=== PATIENT | female | born 1975 | race Caucasian/White ===

== ENCOUNTER 2023-07-24 17:18 | Outpatient (REF) | payer MEDICAID, SELFPAY ==
[2023-07-25 10:21] LABS: BV Int Neg Control Negative (Negative); BV Int Pos Control Positive (Positive)
[2023-07-30 06:29] LABS: HPV mRNA E6/E7 rflx Not Detected (Not Detected)
== END 2023-07-24 17:19 | disposition home or self-care (01) ==
LOC: HO.HHCLNP 17:18
PROVIDERS: Visit Provider Family Medicine
DX: Z01.419 Encounter for gynecological examination (general) (routine) without abnormal findings (principal); Z11.51 Encounter for screening for human papillomavirus (HPV)
CPT/HCPCS: 87480; 87510; 87624; 87660; 88142

== ENCOUNTER 2023-09-17 10:03 | Outpatient (REF) | payer MEDICAID, SELFPAY ==
--- NOTE | ~2023-09-17 | MM_ITS ---
EXAMINATION: MM SCREENING DIGITAL BREAST TOMOSYNTHESIS, BILATERAL CLINICAL INFORMATION: Screening. Asymptomatic. COMPARISON: Mammography: This is a baseline study. TECHNIQUE: Digital breast tomosynthesis is performed in both the craniocaudal and mediolateral oblique views along with computer-aided detection (CAD). Synthesized 2D images are generated from the tomosynthesis. FINDINGS: There are scattered areas of fibroglandular density (ACR BI-RADS breast composition Category b). There are 2 asymmetries in the superior aspect of the right breast which lie approximately 18 mm apart. Additional mammographic and targeted imaging of this finding is advised. Sonographic imaging is at the discretion of the diagnostic radiologist. In the left breast, there are no significant masses, abnormal calcifications, or other abnormalities. MM/MM tomosynthesis screening BI IMPRESSION: Asymmetries of the right breast warrant additional imaging. No mammographic signs of malignancy left breast. ASSESSMENT: BI-RADS BI-RADS 0 - Incomplete: Needs additional Imaging. RECOMMENDATION: 1. Additional views of the right. 2. Targeted ultrasound if warranted after review of the additional views. 3. Radiology department staff will contact the patient for additional imaging. Additional Imaging required This examination should not preclude the clinical evaluation of a suspicious palpable abnormality. This patient's information was entered into a reminder system with a target due date for their next mammogram.
== END 2023-09-17 10:04 | disposition home or self-care (01) ==
LOC: HO.MAMMO 10:03
PROVIDERS: PCP Family Medicine; Visit Provider Family Medicine
DX: Z12.31 Encounter for screening mammogram for malignant neoplasm of breast (principal)
CPT/HCPCS: 77063; 77067

== ENCOUNTER → 2023-09-17 10:15 | Outpatient (BNV) | payer MEDICAID, SELFPAY | PROVIDERS: PCP Family Medicine; Visit Provider Radiology Diagnostic Radiology | DX: Z12.31 Encounter for screening mammogram for malignant neoplasm of breast (principal) | CPT/HCPCS: 77063; 77067 ==

== ENCOUNTER 2023-11-26 10:56 | Outpatient (REF) | payer MEDICAID, SELFPAY ==
--- NOTE | ~2023-11-26 | US_ITS ---
EXAMINATION: MM DIAGNOSTIC DIGITAL BREAST TOMOSYNTHESIS, RIGHT US BREAST LIMITED, RIGHT MAMMOGRAPHY: CLINICAL INFORMATION: Evaluate 2 asymmetries in the right breast superior aspect which lie approximately 18 mm apart. COMPARISON: Mammography: Baseline screening exam 09/17/2023. TECHNIQUE: Digital breast tomosynthesis is performed in the following views: Full-field 3-D right mediolateral view, and a 3-D spot compression right MLO view. This was followed by targeted right breast ultrasound in the upper outer quadrant. FINDINGS: There are scattered areas of fibroglandular density (ACR BI-RADS breast composition Category b). The asymmetries in the upper outer right breast partially efface on the spot compression view, but small nodular foci in this region persist. These will be evaluated by ultrasound. Otherwise, no additional suspicious masses, regions of architectural distortion, or grouped pleomorphic calcifications are identified in the right breast. ULTRASOUND: CLINICAL INFORMATION: Evaluate persistent nodular asymmetries in the upper outer right breast. COMPARISON: No prior ultrasound. Mammography dated same day. TECHNIQUE: Targeted sonographic evaluation was performed using a high frequency linear transducer. Attention was given to the upper outer quadrant of the right breast. Selected archived documentation. FINDINGS: RIGHT BREAST: There is a solitary and minimally complicated cyst on the upper outer quadrant of the right breast at the 10:00 axis, 7 cm from the nipple, measuring 7 x 3 x 4 mm. There is some mild surrounding color Doppler signal but no internal color Doppler signal. There is good through transmission. There is a solitary septation internally, however the rest appears cystic. Margins are circumscribed. This finding has benign features and is benign. There are no additional abnormalities in the upper outer quadrant of the right breast on sonography. US/US breast RT limited mamm only IMPRESSION: No findings in the right breast suspicious for malignancy. 2 abutting upper outer quadrant asymmetries largely effaces on diagnostic views, with only a few nodular foci remaining, of which one is a minimally complicated septated cyst measuring 7 mm as described above, benign. The rest appear to be normal nodular foci of normal breast parenchyma. No further follow-up recommended. Recommend the patient return to routine screening to include both breasts. OVERALL ASSESSMENT: Mammography: BI-RADS 2 - Benign Findings Ultrasound: BI-RADS 2 - Benign Findings RECOMMENDATION: 1 year F/U Results were provided to the patient at time of visit by the technologist. This patient's information was entered into a reminder system with a target due date for their next mammogram.
== END 2023-11-26 10:57 | disposition home or self-care (01) ==
LOC: HO.MAMMO 10:56
PROVIDERS: PCP Family Medicine; Visit Provider Family Medicine
DX: N64.89 Other specified disorders of breast (principal)
CPT/HCPCS: 76642; 77061; 77065

== ENCOUNTER → 2023-11-26 11:00 | Outpatient (BNV) | payer MEDICAID, SELFPAY | PROVIDERS: PCP Family Medicine; Visit Provider Radiology Diagnostic Radiology | DX: N60.01 Solitary cyst of right breast (principal) | CPT/HCPCS: 76642; 77061; 77065 ==

== ENCOUNTER 2024-05-06 14:17 | Outpatient (REF) | payer MEDICAID, SELFPAY ==
--- NOTE | ~2024-05-06 | XR_ITS ---
EXAMINATION: XR KNEE, LEFT CLINICAL INFORMATION: Pain and fall. Left knee pain. COMPARISON: None available. TECHNIQUE: AP, lateral, and both oblique views of the left knee. FINDINGS: Mild medial and patellofemoral compartment joint space narrowing and marginal osteophytes. No fractures. Small joint effusion. Enthesopathic spurring in the quadriceps tendon insertion on the patella. Soft tissues are unremarkable. XR/XR knee LT 4V IMPRESSION: 1. No acute fracture or malalignment. 2. Mild medial and patellofemoral compartment osteoarthritis. 3. Small joint effusion. Electronically signed by: John Ngo MD 05/26/2024 10:44 PM EDT
== END 2024-05-06 14:18 | disposition home or self-care (01) ==
LOC: HO.HHCX 14:17
PROVIDERS: Visit Provider Student in an Organized Health Care Education/Training Program
DX: M25.562 Pain in left knee (principal)
CPT/HCPCS: 73564

== ENCOUNTER 2025-08-17 14:56 | Outpatient (REF) | payer MEDICAID, SELFPAY ==
--- OUTSIDE RECORDS SUMMARY | 2025-08-17 15:30 | XMS_ITS | Encounter Summary ---
Author Organization [employer] Address [address] [place] [address] Care Team Providers Care Pairer Inspector Name Role Phone Bernadette Carolina MD Primary Care Provider [phone] Reason for Visit * Reason Comments RN BP VISIT Encounter Details Date Type Department Care Team (Latest Contact Info) Description 08/17/2025 3:30 PM EST Clinical Support [facility] [address] [place] [address] Nuria Merida RN Elevated blood pressure reading Social History Tobacco Use Types Packs/Day Years Used Date Smoking Tobacco: Never Passive Smoke Exposure: Never Smokeless Tobacco: Never Depression Answer Date Recorded Patient Health Questionnaire-9 Score 16 2025 Patient Health Questionnaire-9 Score 16 2025 Last PHQ-9: Questionnaire Data Not on file 1 09/25/2024 Housing Stability Answer Date Recorded What is your housing situation today? I have enriqueta guevara 07/19/[address] you li ve. Do you have problems with any of the following? None of the above 07/19/2025 Food Insecurity Answer Date Recorded Within the past 12 months, y ou worried that your food would run out before you got money to buy more: Never True 07/19/2025 Within the past 12 months,th e food you bought just didn't last and you didn't have enough money to get more: Never True 06/2025 Transportation Answer Date Recorded In the past 12 months, has l ack of transportation kept you from medical appts, meetings, work or from getting things needed for daily living? No 07/19/2025 Utilities Answer Date Recorded In the past 12 months, has t he electric, gas, oil or water company threatened to shut off services in your home? No 07/19/2025 Depression Answer Date Recorded Patient Health Questionnaire-2 Score 3 2025 Internet Access Answer Date Recorded Internet Access Q1 Yes 07/19/2025 Internet Access Q2 Not on file 07/19/2025 Comments Unknown Sex and Gender Information Value Date Recorded Sex Assigned at Female 10/12/2022 10:30 AM EST Legal Sex Female 10:19 AM EST Gender Identity Female 10/12/2022 10:29 AM EST Sexual Orientation Straight 10/12/2022 10 :30 AM EST documented as of this encounter Last Filed Vital Signs Vital Sign Reading Time Taken Comments Blood Pressure 130/88 08/17/2025 3:41 PM EST Pulse 92 08/17/2025 3:41 PM EST Temperature - - Respiratory Rate 20 08/17/2025 3:41 PM EST Oxygen Saturation 97% 08/17/2025 3:41 PM EST Inhaled Oxygen Concentration - - Weight - - Height - - Body Mass Index - - documented in this encounter Progress Notes * Nuria Merida RN - 08/17/2025 3:30 PM EST SUBJECTIVE: Roberta Maurice is a 50 y.o. year old female who presents for RN BP VISIT Preferred language for medical information: Czech [employer] Bpm Developer needed: No Recommendations at last visit with PCP on 07/26 was to come for a return BP check in 2-3 weeks. If SBP > 140 in the office or >130 at home will start on olmesatan 20 mg daily or losartan 20 mg daily. Today, Roberta Maurice does not complain of any blurred vision, shortness of breath, chest pain, dizziness, or headaches. Current Medications[1] Patient Active Problem List Diagnosis Date Noted Chronic pain of left knee 09/23/2024 Obesity 04/28/2024 Colon cancer screening declined 08/02/2023 Fibroids 08/02/2023 Chronic pain of both knees 04/19/2023 Abnormal uterine bleeding (AUB) 12/14/2022 Depression 10/12/2022 Insomnia 10/12/2022 Panic disorder 10/12/2022 HTN (hypertension) 10/12/2022 Type 2 diabetes mellitus (HCC) 10/12/2022 Chronic deafness in right ear 10/12/2022 Secondary oligomenorrhea 12/13/2022 Patient has no known allergies. Roberta Maurice is currently on NO antihypertensive medications. Recent emergency room or hospitalizations: No Notes scanned into chart: No Tobacco Use History[2] Social History Substance and Sexual Activity Alcohol Use None Social History Substance and Sexual Activity Drug Use Not on file BP Readings from Last 4 Encounters: 08/17/25 130/88 07/26/25 (!) 164/106 09/23/24 (!) 137/108 05/06/24 (!) 167/106 Pulse Readings from Last 4 Encounters: 08/17/25 92 07/26/25 76 09/23/24 96 05/06/24 99 OBJECTIVE: Vitals: 08/17/25 1541 BP: 130/88 BP Location: Left arm Patient Position: Sitting BP Cuff Size: Large adult Pulse: 92 Resp: 20 SpO2: 97% ASSESSMENT: Achieve goal blood pressure of <140/90. The pt did not have any home BP readings to report. The pt does have a home BP cuff but simply did not take any readings. The pt was advised of plan of careand possibly starting on hypertensive medication but the pt adamantly refused. The pt was advised that since today's BP was below the threshold for medications none will be added but this visit will be sent to PCP for review. PLAN: Today's findings will be sent to PCP for review and advisement. If any medication changes are made or a follow up needed the pt will be contacted. Roberta Maurice advised to continue taking medications as directed and reinforcement of lifestylemodifications including low sodium diet and exercise were reviewed. Roberta Maurice agreeable to plan discussed at today's visit. No future appointments. Nuria Merida RN [1] Current Outpatient Medications Medication Sig Dispense Refill clotrimazole-betamethasone (Lotrisone) cream APPLY TOPICALLY TO THE AFFECTED AREA ONCE OR TWICE DAILY 45 g 1 FLUoxetine (PROzac) 40 MG capsule Take 1 capsule by mouth once daily 90 capsule 3 Tirzepatide (Mounjaro) 2.5 MG/0.5ML solution auto-injector Inject 2.5 mg under the skin 1 (one) time per week. 2 mL 11 No current facility-administered medications for this visit. [2] Social History Tobacco Use Smoking Status Never Passive exposure: Never Smokeless Tobacco Never documented in this encounter Plan of Treatment Not on file documented as of this encounter Goals Goal Patient Goal Type Associated Problems Recent Progress Patient-Stated? Author Help patients manage their type 2 diabetes Care Plan Help patients manage their type 2 diabetes Bernadette Villagomez MD Patient has chronic kidney disease Care Plan Patient has chronic kidney disease Bernadette Villagomez MD Patient has chronic kidney disease Care Plan Patient has chronic kidney disease Juani Morgan [place] Patient has chronic kidney disease Care Plan Patient has chronic kidney disease Sally Hooper Patient has chronic kidney disease Care Plan Patient has chronic kidney disease Deepa Rios [facility] Patient has chronic kidney disease Care Plan Patient has chronic kidney disease Nuria Faustin RN documented as of this encounter Visit Diagnoses Diagnosis Elevated blood pressure reading Elevated blood pressure reading without diagnosis of hypertension documented in this encounter Additional Health Concerns Active Problems Noted Date Diagnosed Date Help patients manage their type 2 diabetes 07/22 Patient has chronic kidney disease 07/22/2025 Patient has chronic kidney disease 07/23/2025 Patient has chronic kidney disease 08/04/2025 Patient has chronic kidney disease 08/16/2025 Patient has chronic kidney disease 08/17/2025 Assessment Noted Time PHQ-9 Depression Total Score: 16 025 3:19 PM EST documented as of this encounter Care Teams Pairer Inspector Relationship Specialty Start Date End Date Bernadette Carolina MD [address] [place] [address] PCP - General Family Medicine 12/17/22 documented as of this encounter
[2025-08-17 16:19] LABS: MANUAL DIFF FLAG NO
[2025-08-17 16:31] LABS: INTERNATIONAL NORM RATIO 1.1 (0.9-1.1); Prothrombin Time 13.0 SEC (11.2-13.5)
[2025-08-17 16:32] LABS: Hematocrit 41.4 % (37.0-47.0); Hemoglobin 14.2 g/dl (12.0-16.0); Imm Gran Abs Auto 0.04 X10*3/uL (0.00-0.03); Imm Gran Pct Auto 0.4 % (0.0-0.4); Lymphocytes Absolute Auto 1.6 X10*3/uL (1.2-4.9); Mean Corpuscular HGB Conc 34.3 g/dl (31.0-35.0); Mean Corpuscular Hemoglobin 31.1 pg (27.0-33.0); Mean Corpuscular Volume 90.8 fL (80.0-98.0); NRBC Abs Auto 0.000 X10*3/uL (0.0-0.012); NRBC Pct Auto 0.0 /100WBC (0.0-0.2); Platelet Count 212 X10*3/uL (160-400); Red Blood Count 4.56 X10*6/uL (4.20-5.50); White Blood Count 9.6 X10*3/uL (4.8-10.8)
[2025-08-17 16:34] LABS: Partial Thromboplastin Time 28.6 SEC (26.7-34.1)
[2025-08-17 16:57] LABS: Alanine Aminotransferase 12 U/L (0-31); Albumin Level 4.3 g/dL (3.5-5.0); Alkaline Phosphatase 62 U/L (39-117); Anion Gap 13 (12-20); Aspartate Amino Transferase 28 U/L (5-31); Blood Urea Nitrogen 18 mg/dL (9-16); Calcium 9.1 mg/dL (8.4-10.2); Carbon Dioxide 24 mmol/L (22-29); Chloride 106 mmol/L (96-108); Cholesterol 181 mg/dL (<200); Estimated Glomerular Filt Rate > 60; HDL Cholesterol 43 mg/dL (>40); Potassium 4.1 mmol/L (3.3-5.1); Sodium 139 mmol/L (135-145); Total Protein 7.8 g/dL (6.5-8.0); Triglycerides 99 mg/dL (<150)
[2025-08-17 17:46] LABS: Reflex LDLD? No
--- OUTSIDE RECORDS SUMMARY | 2025-08-17 21:15 | XMS_ITS | Clinical Summary ---
Author Organization [employer] Address [address] [place] [address] Care Team Providers Care Kiln Stoker Name Role Phone Bernadette Carolina MD Primary Care Provider [phone] Allergies No known active allergies Medications * This document contains information received from the source organization and may not represent a complete record from that organization. clotrimazole-be tamethasone (Lotrisone) cream APPLY TOPICALLY TO THE AFFECTED AREA ONCE OR TWICE DAILY 45 g 1 03/09/20 24 Active Tirzepatide (Mounjaro) 2.5 MG/0.5ML solution auto-injector Inject 2.5 mg under the skin 1 (one) time per week. 2 mL 07/26/20 25 Active FLUoxetine (PROzac) 40 MG capsule Take 1 capsule by mouth once daily 90 capsule 3 07/26/20 25 Active hydrOXYzine pamoate (Vistaril) 50 MG capsuleIndicati ons:Anxiety,Ins omnia, unspecified type TAKE 1 CAPSULE BY MOUTH EVERY 6 HOURS IF NEEDED FOR ANXIETY 60 capsule 2 03/09/20 24 025 Discontinued(Me d list cleanup (will not trigger notification to Pharmacy)) FLUoxetine (PROzac) 40 MG capsule Take 1 capsule by mouth once daily 90 capsule 3 03/09/20 24 025 Discontinued(Re order (will not trigger notification to Pharmacy)) semaglutide (Ozempic) 2 MG/1.5ML solution pen-injector Inject 0.25 mg under the skin 1 (one) time per week. 1 each 09/23/19 25 025 Discontinued(Me d list cleanup (will not trigger notification to Pharmacy)) Active Problems Problem Noted Date Diagnosed Date Chronic pain of left knee 09/23/2024 Assessment & Plan (07/31/2025 6:35 PM EST): - since the fall in April 2024 - contusion - X-ray showed no fracture, but osteoarthritis and small effusion - discussed about judicious use of NSAIDs - discussed about ortho referral for steroid injection and PT. Patient states she does not have time currently. Assessment & Plan (09/23/2024 10:09 AM EST): - since the fall in April 2024 - contusion - X-ray showed no fracture, but osteoarthritis and small effusion - discussed about judicious use of NSAIDs - discussed about ortho referral for steroid injection and PT. Patient states she does not have time currently. Obesity 04/28/2024 Assessment & Plan (07/31/2025 6:30 PM EST): - patient states semaglutide was not effective - will try tirzepatide Assessment & Plan (09/23/2024 9:59 AM EST): - patient is still interested in GLP1-RA - patient states Wegovy was not effective - will try Semaglutide, and titrate up Assessment & Plan (04/28/2024 10:15 AM EDT): - patient is interested in GLP1-RA - will prescribe appropriate GLP1 Colon cancer screening declined 08/02/2023 Assessment & Plan (08/02/2023 4:47 PM EST): - discussed on 07/24/23 - will address in near future Fibroids 08/02/2023 Assessment & Plan (08/02/2023 4:53 PM EST): - seen on US in December 2022 - no excessive bleeding - monitor at this time Chronic pain of both knees 04/19/2023 Assessment & Plan (07/31/2025 6:35 PM EST): - continue judicious use of APAP - s/p physical therapy - X-ray in Apr 2024 showed medial and patellofemoral compartment osteoarthritis and small joint effusion. Assessment & Plan (09/23/2024 10:07 AM EST): - continue judicious use of APAP - s/p physical therapy - X-ray in Apr 2024 showed medial and patellofemoral compartment osteoarthritis and small joint effusion. Assessment & Plan (04/19/2023 1:29 PM EDT): - continue judicious use of APAP - refer to physical therapy Abnormal uterine bleeding (AUB) 12/14/2022 Assessment & Plan (08/02/2023 4:52 PM EST): - Pap done today - Oligomenorrhea, likely menopausal - US on 12/20/22 showed fibroid, 5 cm - No discomfort at this time - Will reassess in 1-2 years or if she develops concerning signs and symptoms Assessment & Plan (04/19/2023 1:28 PM EDT): - US was benign - reschedule PAP Assessment & Plan (12/14/2022 3:57 PM EDT): -pt states menstruation is less frequent, but when it starts it is very heavy -will schedule for PAP -will evaluate with US Secondary oligomenorrhea 12/13/2022 Overview (12/14/2022): -currently perimenopausal Assessment & Plan (04/19/2023 1:28 PM EDT): -most likely due to perimenopause - reschedule PAP Assessment & Plan (12/14/2022 3:57 PM EDT): -Patient is concerned about d/t unprotected intercourse -most likely due to perimenopause -will check serum test (hcg) Depression 10/12/2022 Assessment & Plan (07/31/2025 6:34 PM EST): - PHQ-9 score 16 and KOKO-7 score 13 on 2025 - PHQ-9 Score: 17 and KOKO-7 score 12 on 04/28/24 -Continue fluoxetine 40 mg daily - Previously on mirtazapine 15 mg at bedtime, which was discontinued due to weight gain - Previously on trazodone, which was discontinued due to drowsiness - Previously on hydroxyzine prn for anxiety - No longer connected with [facility]; will refer to new [facility] Assessment & Plan (09/23/2024 10:00 AM EST): -PHQ-9 Score: 17 on 04/28/24, improved -KOKO-7 score: 12 on 04/28/24, improved -Continue fluoxetine 40 mg daily -Discontinue mirtazapine 15 mg at bedtime, especially since she is gaining weight -Discussed about having correct Dx and appropriate medications -Continue hydroxyzine prn -continue current behavioral health service -treatment Hx: trazodone makes her drowsy until next morning Assessment & Plan (05/03/2024 3:19 PM EDT): -PHQ-9 Score: 17 on 04/28/24, improved -KOKO-7 score: 12 on 04/28/24, improved -Continue fluoxetine 40 mg daily -Continue mirtazapine 15 mg qhs -Continue hydroxyzine prn -continue current behavioral health service -treatment Hx: trazodone makes her drowsy until next morning Assessment & Plan (08/02/2023 4:54 PM EST): -Continue fluoxetine to 20 mg daily -Continue hydroxyzine prn -continue current [facility] tx Assessment & Plan (04/19/2023 1:35 PM EDT): -Increase fluoxetine to 20 mg daily -Continue hydroxyzine prn -continue current [facility] tx Assessment & Plan (12/14/2022 4:00 PM EDT): -Possible adjustment disorder -Start Fluoxetine 10 mg daily and consider titrating up -Continue hydroxyzine prn -continue current [facility] tx Insomnia 10/12/2022 Assessment & Plan (09/23/2024 10:06 AM EST): -mirtazapine is no longer effective. Will discontinue since patient also has gained weight -previously tried trazodone, up to 100 mg, which was switched to mirtazapine due to ineffectiveness -discussed about optimizing treatment for mood disorder, and possibly ADHD, rather than treating insomnia with a medication. Patient agreed with the plan -discussed about sleep study, but patient states she does not think she can do it because of insomnia Assessment & Plan (04/19/2023 1:25 PM EDT): -Increase trazodone to 100 mg qhs -continue improving sleep hygiene Assessment & Plan (12/13/2022 1:49 PM EDT): -Rx Trazodone 2-weeks after taking Fluoxetine -continue improving sleep hygiene Panic disorder 10/12/2022 Assessment & Plan (07/31/2025 6:31 PM EST): - Previously on hydroxyzine Assessment & Plan (04/28/2024 10:17 AM EDT): -Continue Hydroxyzine as needed -continue [facility] Assessment & Plan (04/19/2023 1:32 PM EDT): -Continue Hydroxyzine as needed -continue [facility] Assessment & Plan (12/13/2022 1:49 PM EDT): -Continue Hydroxyzine as needed -continue [facility] HTN (hypertension) 10/12/2022 Assessment & Plan (07/31/2025 6:27 PM EST): -Goal BP < 130/80 per ACC/AHA guideline (Treatment threshold >= 140/90 ) -BP is elevated today, but pt states it is normal at home. Likely white-coat HTN -Continue current effort on lifestyle modifications -Recommended continue self-monitoring BP. -Pt is not taking any medication currently, and has been hesitant to start antihypertensive -advised to get her lab done - Return for BP check with our nurse in 2 to 3 weeks. If SBP > 140 in the office and/or > 130 at home, start olmesartan 20 mg daily or losartan 25 mg daily. Assessment & Plan (09/23/2024 10:05 AM EST): -Goal BP < 140/90 per JNC-8 and < 130/80 per ACC/AHA guideline (Treatment threshold >= 140/90 ) -BP is elevated today, but pt states it is normal at home. Likely white-coat HTN -Continue current effort on lifestyle modifications -Recommended continue self-monitoring BP. -Pt is not taking any medication currently -advised to get her lab done Assessment & Plan (04/28/2024 10:14 AM EDT): -Goal BP < 140/90 per JNC-8 and < 130/80 per ACC/AHA guideline (Treatment threshold >= 140/90 ) -BP is elevated today, but pt states it is normal at home. Likely white-coat HTN -Continue current effort on lifestyle modifications -Recommended continue self-monitoring BP. -Pt is not taking any medication currently Assessment & Plan (08/02/2023 4:48 PM EST): -Goal BP < 140/90 per JNC-8 and < 130/80 per ACC/AHA guideline (Treatment threshold >= 140/90 ) -BP is elevated today, but pt states it is normal at home. Likely white-coat HTN -Continue current effort on lifestyle modifications -Recommended continue self-monitoring BP. -Pt is not taking any medication currently -Follow up in 3-6 mo, sooner if any problem arises Assessment & Plan (04/19/2023 1:26 PM EDT): -Goal BP < 140/90 per JNC-8 and < 130/80 per ACC/AHA guideline (Treatment threshold >= 140/90 ) -BP is elevated today, but pt states it is normal at home. Likely white-coat HTN -Continue current effort on lifestyle modifications -Recommended continue self-monitoring BP. -Pt is not taking any medication currently -Follow up in 3-6 mo, sooner if any problem arises Assessment & Plan (12/14/2022 3:54 PM EDT): -Goal BP < 140/90 per JNC-8 and < 130/80 per ACC/AHA guideline (Treatment threshold >= 140/90 ) -BP is elevated today, but pt states it is normal at home. Likely white-coat HTN -Continue current effort on lifestyle modifications -Recommended continue self-monitoring BP. -Continue current medications. -Follow up in 3-6 mo, sooner if any problem arises Type 2 diabetes mellitus 10/12/2022 Assessment & Plan (07/31/2025 6:29 PM EST): -Patient states she was diagnosed when she weighed 400lbs -Hgb A1C 6.7% on 2025, increased from 6.4% on 09/23/24, 5.7% on 04/16/23. Trending upwards -Lipid profile: 12/13/22 TC 235; TG 117; HDL 78; LDL 135. Updating lab. -Continue working on lifestyle modification -No medication at this time. Her diabetes has been managed non- pharmacologically. -recommended annual eye and dental exams -microalbumin test was ordered in Apr 2024. UACR. -will start tirzepatide for both diabetes mellitus and weight loss Assessment & Plan (09/23/2024 9:58 AM EST): -Patient states she was diagnosed when she weighed 400lbs -Hgb A1C 6.4% on 09/23/24, increased from 5.7% on 04/16/23 -Lipid profile: 12/13/22 TC 235; TG 117; HDL 78; LDL 135 -Continue working on lifestyle modification -No medication at this time. Her diabetes has been managed non- pharmacologically. -recommended annual eye and dental exams -microalbumin test was ordered in Apr 2024. UACR. -will start GLP-1 RA for both diabetes mellitus and weight loss Assessment & Plan (05/03/2024 3:17 PM EDT): -Patient states she was diagnosed when she weighed 400lbs -Hgb A1C 5.7% on 04/16/23 -Lipid profile: 12/13/22 TC 235; TG 117; HDL 78; LDL 135 -Continue working on lifestyle modification -No medication at this time. Her diabetes has been managed non- pharmacologically. -recommended annual eye and dental exams -will check UACR. -will start GLP-1 RA (we can request for diabetes mellitus or Wt loss) Assessment & Plan (04/19/2023 1:32 PM EDT): -Patient states she was diagnosed when she weighed 400lbs -Hgb A1C 5.7% on 04/16/23 -Lipid profile: 12/13/22 TC 235; TG 117; HDL 78; LDL 135 -Continue working on lifestyle modification -No medication at this time -recommended annual eye and dental exams Assessment & Plan (12/14/2022 3:58 PM EDT): -Patient states she was diagnosed when she weighed 400lbs, now, according to her last A1c, it is normal. -Continue periodical labs -No medication at this time -recommended annual eye and dental exams -will check Lipid Profile Chronic deafness in right ear 10/12/2022 Resolved Problems Problem Noted Date Diagnosed Date Resolved Date Encounter for well woman mira king with routine gynecological exam 04/16/2023 04/19/2023 Elevated blood-pressure read ing without diagnosis of hypertension 12/13/2022 07/24/2023 Assessment & Plan (04/19/2023 1:27 PM EDT): -Goal BP < 140/90 per JNC-8 and < 130/80 per ACC/AHA guideline (Treatment threshold >= 140/90 ) -BP is elevated today, but pt states it is normal at home. Likely white-coat HTN -Pt has had two elevated readings in the clinic, but does not want to have a formal Dx HTN or start medication at this time -Continue current effort on lifestyle modifications -Recommended continue self-monitoring BP. -Follow up in 3-6 mo, sooner if any problem arises Assessment & Plan (12/14/2022 3:56 PM EDT): -Goal BP < 140/90 per JNC-8 and < 130/80 per ACC/AHA guideline (Treatment threshold >= 140/90 ) -BP is elevated today, but pt states it is normal at home. Likely white-coat HTN -Continue current effort on lifestyle modifications -Recommended continue self-monitoring BP. -Continue current medications. -Follow up in 3-6 mo, sooner if any problem arises Unprotected sexual intercourse 10/12/2022 10/12/2022 Encounters * This document contains information received from the source organization and may not represent a complete record from that organization. Date Type Department Care Team Description 08/17/2025 3:30 PM EST Clinical Support [address] [id number] Nuria Merida RN Elevated blood pressure reading 08/17/2025 Travel 08/11/2025 Travel 08/09/2025 Travel 2025 3:15 PM EST Office Visit [address] [address] Bernadette Carolina MD Type 2 diabetes mellitus without complication, without long-term current use of insulin ([facility]) (Primary Dx); Hypertension, unspecified type; Panic disorder; Anxiety and depression; Chronic pain of left knee; Chronic pain of both knees; Screening for lipid disorders; Bruises easily; Encounter for immunization; Encounter for vaccination; Class 3 severe obesity due to excess calories with serious comorbidity and body mass index (BMI) of 45.0 to 49.9 in adult ([facility]); Current severe episode of major depressive disorder without psychotic features, unspecified whether recurrent (CMS/HCC) (HCC) 2025 Travel 07/23/[address] [address] Bernadette Carolina MD chartprep 07/19/2025 Patient Outreach [facility] [address] [place] [address] Bernadette Carolina MD Pre-visit Planning (SDOH negative, Tobacco screening negative. ) 07/19/2025 Travel from Last 3 Months Immunizations Immunization Administration Dates Next Due Hep B, adult 08/21/2023,07/24/2023 Influenza injectable quadriv alent preservative free 07/24/2023 Influenza, seasonal, injecta ble, preservative free 2025 Moderna Covid-19 Vaccine 12+ 08/30/2021,02/10/20 21,01/11/2021 Pfizer Covid-19 Vaccine 12+ 2025 Pneumococcal Polysaccharide PPSV23 02/24/2015 Tdap 07/24/2023,02/24/2015 Social History Tobacco Use Types Packs/Day Years Used Date Smoking Tobacco: Never Passive Smoke Exposure: Never Smokeless Tobacco: Never Tobacco Cessation:Counseling Given: Not Answered Depression Answer Date Recorded Patient Health Questionnaire-9 [...] Orientation Straight 10/12/2022 10 :30 AM EST Last Filed Vital Signs Vital Sign Reading Time Taken Comments Blood Pressure 130/88 08/17/2025 3:41 PM EST Pulse 92 08/17/2025 3:41 PM EST Temperature 36.6 C (97.8 F) 2025 3:14 PM EST Respiratory Rate 20 08/17/2025 3:41 PM EST Oxygen Saturation 97% 08/17/2025 3:41 PM EST Inhaled Oxygen Concentration - - Weight 136 kg (299 lb 12.8 oz) 2025 3:14 P M EST Height 167.6 cm (5' 6 ) 2025 3:14 PM EST Body Mass Index 48.39 2025 3:14 PM EST Plan of Treatment Health Maintenance Due Date Last Done Comments CT Colonography 1974 Colonoscopy 1974 Colorectal Cancer Screening 1974 FIT DNA/Cologuard 1974 FIT 1974 FOBT 1974 Sigmoidoscopy 1974 Diabetes: Foot Exam 1984 Eye Exam 1984 Family Planning (PISQ) 1989 Diabetes: Urine Protein Screening 1993 Pneumococcal Vaccine: 50+ Years (2 of 2 - PCV) 02/25/2016 02/24/2015 Hepatitis B Vaccines (3 of 3 - 19+ 3-dose series) 01/22/2024 08/21/2023, 07/24/2023 RSV Patients and Patients Aged 60 years or older (1 - Risk 50-74 years 1-dose series) 2024 Zoster Vaccines (1 of 2) 2024 Alcohol/Substance Use Screening 09/23/2025 09/23/2024 Mammogram 11/25/2025 11/26/2023, 11/07, 11/26/2023, Additional history exists Depression Monitoring 01/23/2026 2025, 025 Diabetes: Hemoglobin A1C 01/23/2026 025, 09/23/2024, 04/16/2023, Additional history exists Disability Screening 07/19/2026 07/19/2025 SDOH Screening 07/19/2026 07/19/2025 Pap Smear 07/24/2026 07/24/2023 Tobacco Screening 07/31/2026 07/31/2025 Lipid Panel 08/17/2026 08/17/2025, 12/13/2022 Cervical Cancer Screening 07/24/2028 HPV/Cotest 07/24/2028 07/24/2023 DTaP/Tdap/Td Vaccines (3 - Td or Tdap) 07/24/2033 07/24/2023, 02/24/2015 HIV Screening Completed 12/13/2022 Hepatitis C Screening Completed 12/13/2022 COVID-19 Vaccine Completed 2025, , 02/09/2021, Additional history exists Influenza Vaccine Completed 2025, 07/24/2023 HIB Vaccines Aged Out No longer eligi ble based on patient's age to complete this topic HPV Vaccines Aged Out No longer eligi ble based on patient's age to complete this topic Hepatitis A Vaccines Aged Out No long er eligible based on patient's age to complete this topic IPV Vaccines Aged Out No longer eligi ble based on patient's age to complete this topic Meningococcal B Vaccine Aged Out No l onger eligible based on patient's age to complete this topic Meningococcal Vaccine Aged Out No sheila hilton eligible based on patient's age to complete this topic RSV under 20 months Aged Out No longe r eligible based on patient's age to complete this topic Rotavirus Vaccines Aged Out No longer eligible based on patient's age to complete this topic Goals Goal Patient Goal Type Associated Problems Recent Progress Patient-Stated? Author Help patients manage their type 2 diabetes Care Plan Help patients manage their type 2 diabetes No Bernadette Carolina MD Patient has chronic kidney disease Care Plan Patient has chronic kidney disease No Bernadette Carolina MD Patient has chronic kidney disease Care Plan Patient has chronic kidney disease No Juani Beasley MA Patient has chronic kidney disease Care Plan Patient has chronic kidney disease No Sally Chery Patient has chronic kidney disease Care Plan Patient has chronic kidney disease No [facility] Patient has chronic kidney disease Care Plan Patient has chronic kidney disease No Nuria Merida, bead filler Procedure Name Priority Date/Time Associated Diagnosis Comments APTT Routine 08/17/2025 3:21 PM EST Bruises easily PROTHROMBIN TIME-INR Routine 08/17/2025 3:21 PM EST Bruises easily CBC WITH AUTO DIFFERENTIAL Routine 08/17/2025 3:21 PM EST Bruises easily LIPID PANEL WITH REFLEX TO DIRECT LDL Routine 08/17/2025 3:21 PM EST Type 2 diabetes mellitus without complication, without long-term current use of insulin (HCC) Screening for lipid disorders COMPREHENSIVE METABOLIC PANEL Routine 08/17/2025 3:21 PM EST Hypertension, unspecified type Type 2 diabetes mellitus without complication, without long-term current use of insulin (HCC) POCT GLYCATED HEMOGLOBIN, TOTAL Routine 2025 3:18 PM EST Type 2 diabetes mellitus without complication, without long-term current use of insulin (HCC) POCT GLUCOSE Routine 2025 3:16 PM EST Type 2 diabetes mellitus without complication, without long-term current use of insulin (HCC) BI MAMMOGRAM DIAGNOSTIC TOMOSYNTHESIS RIGHT Routine 11/26/2023 11:15 AM EDT HPV MRNA E6/E7 REFLEX TO HPV 16, 18/45 Routine 07/24/2023 10:19 AM EST Secondary oligomenorrhea PAP SMEAR Routine 07/24/2023 10:19 AM EST Secondary oligomenorrhea HEPATITIS C AB W/REFL TO HCV RNA, QN, PCR Routine 12/13/2022 10:49 AM EDT Routine screening for STI (sexually transmitted infection) HIV 1/2 ANTIGEN/ANTIBODY, FOURTH GENERATION W/RFL Routine 12/13/2022 10:49 AM EDT Routine screening for STI (sexually transmitted infection) from Last 3 Months or Most Recently Relevant to Health Maintenance Results * (ABNORMAL) Lipid Panel with Reflex to Direct LDL (08/17/2025 3:21 PM EST) Triglycerides 99 <150 mg/dL [facility] Comment:Desirable Triglyceri de: less than 150 mg/dLBorderline High Triglyceride 150-199 mg/dLHigh Triglyceride: 200-499 mg/dLVery High Triglyceride: greater than or equal to 5OO mg/dL Cholesterol 181 <200 mg/dL [facility] Comment:Desirable Cholestero l: less than 200 mg/dLBorderline High Cholesterol: 200-239 mg/dLHigh Cholesterol: greater than 239 mg/dL LDL Cholesterol Calculated 119(H) <100 mg/dL [facility] Comment:Desirable LDL: less than 100 mg/dLNear Optimal/Above Optimal LDL: 110- 129 mg/dLBorderline High LDL: 130-159 mg/dLHigh LDL: 160-189 mg/dLVery High LDL: greater than or equal to 190 mg/dL HDL Cholesterol 43 >40 mg/dL [facility] Comment:Desirable HDL: great er than 40 mg/dL Note: This HDL assay may give artificially low results in patients with liver disease. Blood 08/17/2025 3:21 PM EST 08/17/2025 4:14 PM EST us Bernadette Carolina MD LAB BLOOD ORDERABLES Final Resul t [facility] [address] [place] [phone] * (ABNORMAL) CBC auto differential (08/17/2025 3:21 PM EST) White Blood Count 9.6 4.8 - 10.8 X10*3/uL [facility] Red Blood Count 4.56 4.20 - 5.50 X10*6/uL [facility] Hemoglobin 14.2 12.0 - 16.0 g/dl [facility] Hematocrit 41.4 37.0 - 47.0 % [facility] Mean Corpuscular Volume 90.8 80.0 - 98.0 fL [facility] Mean Corpuscular Hemoglobin 31.1 27.0 - 33.0 pg [facility] Mean Corpuscular HGB Conc 34.3 31.0 - 35.0 g/dl [facility] Red Cell Distribution Width 12.5 11.0 - 16.0 % [facility] Platelet Count 212 160 - 400 X10*3/uL [facility] Mean Platelet Volume 9.3(L) 9.4 - 12.3 fL [facility] Neutrophils Percent Auto 77.0(H) 45 - 73 % [facility] Imm Gran Pct Auto 0.4 0.0 - 0.4 % [facility] Lymphocytes Percent Auto 16.7(L) 20 - 40 % [facility] Monocytes Percent Auto 4.5 2 - 11 % [facility] Eosinophils Percent Auto 0.8 0 - 4 % [facility] Basophils Percent Auto 0.6 0 - 2 % [facility] NRBC Pct Auto 0.0 0.0 - 0.2 /100WBC [facility] Neutrophils Absolute Auto 7.4 2.0 - 8.3 x10*3/uL [facility] Imm Gran Abs Auto 0.04(H) 0.00 - 0.03 X10*3/uL [facility] Lymphocytes Absolute Auto 1.6 1.2 - 4.9 X10*3/uL [facility] Monocytes Absolute Auto 0.4 0.1 - 1.2 X10*3/uL [facility] Eosinophils Absolute Auto 0.1 0.0 - 0.4 X10*3/uL [facility] Basophils Absolute Auto 0.1 0.0 - 0.2 X10*3/uL [facility] NRBC Abs Auto 0.000 0.0 - 0.012 X10*3/uL [facility] Blood Venous blood specimen / Unknown 08/17/2025 3:21 PM EST 08/17/2025 4:14 PM EST us Bernadette Carolina MD LAB BLOOD ORDERABLES Final Resul t [facility] [address] [place] [address] [phone] * Partial Thromboplastin Time, Activated (APTT) (08/17/2025 3:21 PM EST) Partial Thromboplastin Time 28.6 26.7 - 34.1 SEC [facility] Blood Venous blood specimen / Unknown 08/17/2025 3:21 PM EST 08/17/2025 4:14 PM EST us Bernadette Carolina MD LAB BLOOD ORDERABLES Final Resul t Performing Organization Address [facility] Co de Phone Number [facility] [address] [place] [phone] * Prothrombin Time-INR (08/17/2025 3:21 PM EST) Prothrombin Time 13.0 11.2 - 13.5 SEC [facility] INTERNATIONAL NORM RATIO 1.1 0.9 - 1.1 [facility] Comment:INTERNATIONAL NORMAL IZED RATIO (INR) REFERENCE RANGES Reference RangeFor patients not on anticoagulant therapy: 0.9 - 1.1INR ranges for oral anticoagulanttherapy:For prevention and treatment of venous thrombosis and pulmonary embolism: 2.0 - 3.0For acute myocardial infarction with aspirin therapy: 2.0 - 3.0For acute myocardial infarction without aspirin therapy: 3.0 - 4.0For patients with mechanical prosthetic heart valves: 2.5 - 3.5 Blood Venous blood specimen / Unknown 08/17/2025 3:21 PM EST 08/17/2025 4:14 PM EST us Bernadette Carolina MD LAB BLOOD ORDERABLES Final Resul t Performing Organization Address [facility] Co de Phone Number [facility] [address] [place] [address] [phone] * (ABNORMAL) Comprehensive Metabolic Panel (08/17/2025 3:21 PM EST) Sodium 139 135 - 145 mmol/L [facility] Potassium 4.1 3.3 - 5.1 mmol/L [facility] Comment:Slight Hemolysis.Int erpret result with caution. Chloride 106 96 - 108 mmol/L [facility] Carbon Dioxide 24 22 - 29 mmol/L [facility] Anion Gap 13 12 - 20 [facility] Urea Nitrogen (BUN) 18(H) 9 - 16 mg/dL [facility] Creatinine, Serum 0.87 0.5 - 1.4 mg/dL [facility] Estimated Glomerular Filt Rate >60 [facility] Comment:Chronic Kidney Disea se: Estimated GFR < 60 mL/min/1.70n6Dicgrn Kidney Disease: Estimated GFR < 15 mL/min/1.73m2 Glucose 108 60 - 115 mg/dL [facility] Calcium 9.1 8.4 - 10.2 mg/dL [facility] Bilirubin, Total 0.7 0.0 - 1.0 mg/dL [facility] Aspartate Amino Transferase 28 5 - 31 U/L [facility] Comment:Slight Hemolysis.Int erpret result with caution. Alanine Aminotransferase 12 0 - 31 U/L [facility] Total Protein 7.8 6.5 - 8.0 g/dL [facility] Albumin Level 4.3 3.5 - 5.0 g/dL [facility] Alkaline Phosphatase 62 39 - 117 U/L [facility] Blood Venous blood specimen / Unknown 08/17/2025 3:21 PM EST 08/17/2025 4:14 PM EST Bernadette Carolina MD LAB BLOOD ORDERABLES Final Resul t [facility] [address] [place] [address] [phone] * (ABNORMAL) POCT Hgb A1c (2025 3:18 PM EST) Hemoglobin A1C 6.7(A) 4.0 - 5.7 % QC Media Lot # [id number] Lot# Expiration Date [id number] Blood 2025 3:18 PM EST us Bernadette Carolina MD POINT OF CARE TEST ENTER/EDIT OR DERABLES Final Result * POCT Glucose (2025 3:16 PM EST) Glucose Blood, POC 118 60 - 200 mg/dL QC Media Lot # [id number] Lot# Expiration Date [id number] Blood Capillary blood specimen / Unknown 2025 3:16 PM EST Bernadette Carolina MD POINT OF CARE TEST ENTER/EDIT OR DERABLES Final Result * BI Mammogram Diagnostic Tomosynthesis Right (11/26/2023 11:15 AM EDT) Anatomical Region Laterality Modality Breast Right Mammography 11/26/2023 11:1 5 AM EDT Narrative 11/26/2023 3:55 PM EDT [facility] [address] [place], [place] [address] Mammography Report Signed Patient: Roberta Puri MR#: [id number] : 1975 Acct:[id number] Age/Sex: 48 / F ADM Date: 11/26/23 [facility]: Bernadette Carolina MD Ordering Physician: Bernadette Carolina MD Results: 2Benign F indings Date of Service: 11/26/23 Follow Up: 1 Year From [facility] ina Mammogram Procedure(s): MM tomosynthesis diagnostic RT Accession Number(s): [id number] cc: Bernadette Carolina MD EXAMINATION: MM DIAGNOSTIC DIGITAL BREAST TOMOSYNTHESIS, RIGHT US BREAST LIMITED, RIGHT MAMMOGRAPHY: CLINICAL INFORMATION: Evaluate 2 asymmetries in the right breast superior aspect which lie approximately 18 mm apart. COMPARISON: Mammography: Baseline screening exam 09/17/2023. TECHNIQUE: Digital breast tomosynthesis is performed in the following views: Full-field 3-D right mediolateral view, and a 3-D spot compression right MLO view. This was followed by targeted right breast ultrasound in the upper outer quadrant. FINDINGS: There are scattered areas of fibroglandular density (ACR BI-RADS breast composition Category b). The asymmetries in the upper outer right breast partially efface on the spot compression view, but small nodular foci in this region persist. These will be evaluated by ultrasound. Otherwise, no additional suspicious masses, regions of architectural distortion, or grouped pleomorphic calcifications are identified in the right breast. ULTRASOUND: CLINICAL INFORMATION: Evaluate persistent nodular asymmetries in the upper outer right breast. COMPARISON: No prior ultrasound. Mammography dated same day. TECHNIQUE: Targeted sonographic evaluation was performed using a high frequency linear transducer. Attention was given to the upper outer quadrant of the right breast. Selected archived documentation. FINDINGS: RIGHT BREAST: There is a solitary and minimally complicated cyst on the upper outer quadrant of the right breast at the 10:00 axis, 7 cm from the nipple, measuring 7 x 3 x 4 mm. There is some mild surrounding color Doppler signal but no internal color Doppler signal. There is good through transmission. There is a solitary septation internally, however the rest appears cystic. Margins are circumscribed. This finding has benign features and is benign. There are no additional abnormalities in the upper outer quadrant of the right breast on sonography. MM/MM tomosynthesis diagnostic RT IMPRESSION: No findings in the right breast suspicious for malignancy. 2 abutting upper outer quadrant asymmetries largely effaces on diagnostic views, with only a few nodular foci remaining, of which one is a minimally complicated septated cyst measuring 7 mm as described above, benign. The rest appear to be normal nodular foci of normal breast parenchyma. No further follow-up recommended. Recommend the patient return to routine screening to include both breasts. OVERALL ASSESSMENT: Mammography: BI-RADS 2 - Benign Findings Ultrasound: BI-RADS 2 - Benign Findings RECOMMENDATION: 1 year F/U Results were provided to the patient at time of visit by the technologist. This patient's information was entered into a reminder system with a target due date for their next mammogram. Dictated By: John Montenegro MD Signed By: <Electronically signed by John Montenegro MD in OV> 11/26/23 1552 DD/ 1115 TD/TT: Fitness Studies Teacher: Procedure Note Donotuseinterpreter, Image - 11/27/2023 [place] [facility] [address] [place] [address] Mammography Report Signed Patient: Roberta Puri JMR#: [id number] : 1975Acct:[id number] Age/Sex: 48 / FADM Date: 11/26/23 Loc: HO.MAMMO Attending Dr: Bernadette Carolina MD Ordering Physician: Bernadette Carolina MDResults: 2Benign F indings Date of Service: 11/26/23Follow Up: 1 Year From [facility] Mammogram Procedure(s): MM tomosynthesis diagnostic RT Accession Number(s): [id number] cc: Bernadette Carolina MD EXAMINATION: MM DIAGNOSTIC DIGITAL BREAST TOMOSYNTHESIS, RIGHT US BREAST LIMITED, RIGHT MAMMOGRAPHY: CLINICAL INFORMATION: Evaluate 2 asymmetries in the right breast superior aspect which lie approximately 18 mm apart. COMPARISON: Mammography: Baseline screening exam 09/17/2023. TECHNIQUE: Digital breast tomosynthesis is performed in the following views: Full-field 3-D right mediolateral view, and a 3-D spot compression right MLO view. This was followed by targeted right breast ultrasound in the upper outer quadrant. FINDINGS: There are scattered areas of fibroglandular density (ACR BI-RADS breast composition Category b). The asymmetries in the upper outer right breast partially efface on the spot compression view, but small nodular foci in this region persist. These will be evaluated by ultrasound. Otherwise, no additional suspicious masses, regions of architectural distortion, or grouped pleomorphic calcifications are identified in the right breast. ULTRASOUND: CLINICAL INFORMATION: Evaluate persistent nodular asymmetries in the upper outer right breast. COMPARISON: No prior ultrasound. Mammography dated same day. TECHNIQUE: Targeted sonographic evaluation was performed using a high frequency linear transducer. Attention was given to the upper outer quadrant of the right breast. Selected archived documentation. FINDINGS: RIGHT BREAST: There is a solitary and minimally complicated cyst on the upper outer quadrant of the right breast at the 10:00 axis, 7 cm from the nipple, measuring 7 x 3 x 4 mm. There is some mild surrounding color Doppler signal but no internal color Doppler signal. There is good through transmission. There is a solitary septation internally, however the rest appears cystic. Margins are circumscribed. This finding has benign features and is benign. There are no additional abnormalities in the upper outer quadrant of the right breast on sonography. MM/MM tomosynthesis diagnostic RT IMPRESSION: No findings in the right breast suspicious for malignancy. 2 abutting upper outer quadrant asymmetries largely effaces on diagnostic views, with only a few nodular foci remaining, of which one is a minimally complicated septated cyst measuring 7 mm as described above, benign. The rest appear to be normal nodular foci of normal breast parenchyma. No further follow-up recommended. Recommend the patient return to routine screening to include both breasts. OVERALL ASSESSMENT: Mammography: BI-RADS 2 - Benign Findings Ultrasound: BI-RADS 2 - Benign Findings RECOMMENDATION: 1 year F/U Results were provided to the patient at time of visit by the technologist. This patient's information was entered into a reminder system with a target due date for their next mammogram. Dictated By: John Montenegro MD Signed By: <Electronically signed by John Montenegro MD in OV> 11/26/23 1552 DD/ 1115 TD/TT: Fitness Studies Teacher: Bernadette Carolina MD IMG BI PROCEDURES Final Result * HPV mRNA E6/E7 w/Reflex to HPV Genotypes 16, 18/45 (07/24/2023 10:19 AM EST) HPV nRNA E6/E7 Not Detected Not Detected [facility] Comment:Methodology: Transcr iption-Mediated AmplificationThis assay detects E6/E7 viral messenger RNA (mRNA) from 14high-risk HPV types (16,18,31,33,35,39,45,51,52,56,58,59,66,68).Cervical sources are required for HPV testing.If a vaginal source from a patient who has had atotal hysterectomy with removal of cervix wassubmitted, please contact the testing laboratoryfor alternative testing options.For additional information, please refer tohttp://education.wst.cn/faq/TGO467j2(This link if provided for information/educational purposes only.)THIS TEST WAS PERFORMED AT:[facility] [place] [phone] PASCAL MD HPV mRNA E6/E7 [facility] HPV 16 RNA [facility] HPV 18/45 RNA [facility] 07/24/2023 10:1 9 AM EST 07/25/2023 10:45 AM EST Bernadette Carolina MD LAB CYTOLOGY ORDERABLES Final Re sult [facility] [address] [place] [address] [phone] * Pap Smear (07/24/2023 10:19 AM EST) 07/24/2023 10:1 9 AM EST 07/25/2023 10:45 AM EST Maximiliano [facility] - 08/13/2023 7:55 AM EST ----- ------- Name: ROBERTA PURI Age/Sex: 47/F : 1975 Unit#: [id number] Attend Dr: Bernadette Carolina MD Re07/24/23 Status: DEP REF Location: HO.HHCLNP Disch: ----- ------- SPEC : [id number] RECD: 07/25/23 STATUS: LUCIANO REQ NUM: [id number] VELIA: 07/24/23-[address] [facility] [address]: Bernadette Carolina MD ENTERED: 07/26/23 SP TYPE: Pap Smr OT DR: ORDERED: Pap Smear Interpretation Satisfactory for evaluation. Negative for intraepithelial lesion or malignancy. HPV mRNA E6/E7: NOT DETECTED This assay detects E6/E7 viral messenger RNA (mRNA) from 14 high-risk HPV types (16, 18, 31, 33, 35, 39, 45, 51, 52, 56, 58, 59, 66, 68) HPV testing performed by [employer], Lyle, MD. See reference laboratory portion of the EMR for entire report. Clinical Information LMP: Unknown date Previous PAP test: She has not had one for many years Material Received ThinPrep-Vaginal/Cervical ----- ------- Signed (signature on file) NICOLA Beth (ASCP) 08/13/23 0755 ----- ------- END OF REPORT us Bernadette Carolina MD LAB CYTOLOGY ORDERABLES Final Re sult [facility] [address] [place] [phone] * Hepatitis C Antibody with Reflex to HCV, RNA, Quantitative, Real-Time PCR (12/13/2022 10:49 AM EDT) Hepatitis C Antibody NON-REACT JESUSITA NON-REACT JESUSITA [employer] [place] Index 0.04 <1.00 [employer] [place] [facility] Comment: HCV antibody was non-reactive. There is no laboratory evidence of HCV infection. In most cases, no further action is required. However, if recent HCV exposure is suspected, a test for HCV RNA (test code 18650) is suggested. For additional information please refer to http://education.NetWitness.[employer]/faq/TDD60i0 (This link is being provided for informational/ educational purposes only.) Blood Venous blood specimen / Unknown 12/13/2022 10:49 AM EDT 12/13/2022 10:50 AM EDT Narrative [facility] - 12/14/2022 3:51 PM EDT FASTING:NO FASTING: NO Bernadette Carolina MD LAB BLOOD ORDERABLES Final Resul t [facility] [address] [facility], [facility], [place] [address] [employer] [place] [facility] [address] [place] [address] * HIV-1/2 Antigen and Antibodies, Fourth Generation, with Reflexes (12/13/2022 10:49 AM EDT) HIV Antigen/Antibody, 4th Generation NON-REAC TIVE NON-REAC TIVE [email or web address] [place] [email or web address] Comment: HIV-1 antigen and HIV-1/HIV-2 antibodies were not detected. There is no laboratory evidence of HIV infection. PLEASE NOTE: This information has been disclosed to you from records whose confidentiality may be protected by state law. If your state requires such protection, then the state law prohibits you from making any further disclosure of the information without the specific written consent of the person to whom it pertains, or as otherwise permitted by law. A general authorization for the release of medical or other information is NOT sufficient for this purpose. For additional information please refer to http://[employer]NetWitness.[employer]/faq/QXS625 (This link is being provided for informational/ educational purposes only.) The performance of this assay has not been clinically validated in patients less than 2 years old. Blood Venous blood specimen / Unknown 12/13/2022 10:49 AM EDT 12/13/2022 10:50 AM EDT Narrative [facility] - 12/14/2022 3:51 PM EDT FASTING:NO FASTING: NO Bernadette Carolina MD LAB BLOOD ORDERABLES Final Resul t [facility] [address] [facility], [facility], [place] [address] [employer] [facility] [address] [place] [phone] from Last 3 Months or Most Recently Relevant to Health Maintenance Additional Health Concerns Active Problems Noted Date Diagnosed Date Help patients manage their type 2 diabetes 07/22 Patient has chronic kidney disease 07/22/2025 Patient has chronic kidney disease 07/23/2025 Patient has chronic kidney disease 08/04/2025 Patient has chronic kidney disease 08/16/2025 Patient has chronic kidney disease 08/17/2025 [facility] Kiln Stoker Relationship Specialty Start Date End Date Bernadette Carolina MD [address] [place] [phone] PCP - General Family Medicine 12/17/22
--- OUTSIDE RECORDS SUMMARY | 2025-08-17 21:15 | XMS_ITS | Encounter Summary ---
Author Organization [employer] Address [address] [facility] [address] [place] [address] Care Team Providers Care Accredited Farm Manager Name Role Phone Bernadette Carolina MD Primary Care Provider [phone] Encounter Details Date Type Department Care Team (Latest Contact Info) Description 08/17/2025 Travel Social History Tobacco Use Types Packs/Day Years [...] AM EST documented as of this encounter Plan of Treatment Not on [...] Patient has chronic kidney disease No [facility] has chronic kidney disease Care Plan Patient has chronic kidney disease No Nuria Merida RN documented as of this encounter Visit Diagnoses Not on filedocumented in this encounter Additional Health Concerns Active [...] documented as of this encounter Care Teams Accredited Farm Manager Relationship Specialty Start Date End Date Bernadette Carolina MD [address] [place] [phone] PCP - General Family Medicine 12/17/22 documented as of this encounter
--- OUTSIDE RECORDS SUMMARY | 2025-08-17 21:15 | XMS_ITS | Encounter Summary ---
Author Organization [employer] Address [address] [place] [address] [address] [place] [address] Care Team Providers Care Rigging Worker Name Role Phone Bernadette Carolina MD Primary Care Provider [phone] Encounter Details Date Type Department Care Team (Late st Contact Info) Description 12/04/2022 Abstract [facility] [address] [place], [place] [phone] Catarina Ortiz, RN [address] [place], [place] [phone] Social History Tobacco Use Types Packs/Day Years Used Date Smoking Tobacco: Never Smokeless Tobacco: Never Comments Unknown Sex and Gender Information Value Date Recorded Sex Assigned at Female 10/12/2022 10:30 AM EST Legal Sex Female 10:19 AM EST Gender Identity Female 10/12/2022 10:29 AM EST Sexual Orientation Straight 10/12/2022 10 :30 AM EST COVID-19 Exposure Response Date Recorded In the last 10 days, have yo u been in contact with someone who was confirmed or suspected to have Coronavirus/COVID-19? No / Unsure 11/09/2022 10:21 AM EST documented as of this encounter Plan of Treatment Not on file documented as of this encounter Visit Diagnoses Not on filedocumented in this encounter Care Teams Rigging Worker Relationship Specialty Start Date End Date Bernadette Carolina MD [address] [place], [place] [phone] PCP - General Family Medicine 12/17/22 documented as of this encounter
--- OUTSIDE RECORDS SUMMARY | 2025-08-17 21:15 | XMS_ITS | Encounter Summary ---
Author Organization [employer] Address [address] [facility] [address] [place] [address] Care Team Providers Care Professor Of Voice Name Role Phone Bernadette Carolina MD Primary Care Provider [phone] Encounter Details Date Type Department Care Team (Late st Contact Info) Description 03/09/2024 Orders Only [facility] [address] [place], [place] [phone] Bernadette Carolina MD [address] [place], [place] [phone] Social History Tobacco Use Types Packs/Day Years Used Date Smoking Tobacco: Never Passive Smoke Exposure: Never Smokeless Tobacco: Never Depression Answer Date Recorded Patient Health Questionnaire-9 Score 9 12/13/2022 Housing Stability Answer Date Recorded What is your housing situation today? I have enriquetanaeem guevara 07/09/[address] you li ve. Do you have problems with any of the following? None of the above 07/09/2023 Food Insecurity Answer Date Recorded Within the past 12 months, y ou worried that your food would run out before you got money to buy more: Never True 07/09/2023 Within the past 12 months,th e food you bought just didn't last and you didn't have enough money to get more: Never True Transportation Answer Date Recorded In the past 12 months, has l ack of transportation kept you from medical appts, meetings, work or from getting things needed for daily living? No 07/09/2023 Utilities Answer Date Recorded In the past 12 months, has t he electric, gas, oil or water company threatened to shut off services in your home? No 07/09/2023 Depression Answer Date Recorded Patient Health Questionnaire-2 Score 4 12/13/2022 Comments Unknown Sex and Gender Information Value [...] filedocumented in this encounter Additional Health Concerns Assessment Noted Time PHQ-9 Depression Total Score: 9 12/14/19 9:29 AM EDT documented as of this encounter Care Teams Professor Of Voice Relationship Specialty Start Date End Date Bernadette Carolina MD [address] [place] [phone] PCP - General Family Medicine 12/17/22 documented as of this encounter
--- OUTSIDE RECORDS SUMMARY | 2025-08-17 21:15 | XMS_ITS | Encounter Summary ---
Author Organization [employer] Address [address] [place] [address] [address] [place] [address] Care Team Providers Care Office Coordinator Receptionist Name Role Phone Bernadette Carolina MD Primary Care Provider Encounter Details Date Type Department Care Team (Late st Contact Info) Description 01/23/2023 Orders Only [facility] MEDICINE [address], [place] [phone] Bernadette Carolina MD [address] [place], [place] [phone] Secondary oligomenorrhea (Primary Dx) Social History Tobacco Use Types Packs/Day Years Used Date Smoking Tobacco: Never Passive Smoke Exposure: Never Smokeless Tobacco: Never Depression Answer Date Recorded Patient Health Questionnaire-9 Score 9 12/13/2022 Depression Answer Date Recorded Patient Health Questionnaire-2 [...] on file documented as of this encounter Procedures Procedure Name Priority Date/Time Associated Diagnosis Comments HPV MRNA E6/E7 REFLEX TO HPV 16, 18/45 Routine 07/24/2023 10:19 AM EST Secondary oligomenorrhea PAP SMEAR Routine 07/24/2023 10:19 AM EST Secondary oligomenorrhea HCG, TOTAL, QN Routine 01/24/2023 10:15 AM EDT Secondary oligomenorrhea documented in this encounter Results * Pap Smear (07/24/2023 10:19 AM EST) 07/24/2023 10:1 9 AM EST 07/25/2023 10:45 AM EST [facility] - 08/13/2023 7:55 AM EST ----- ------- Name: ROBERTA PURI Age/Sex: 47/F : 1975 Unit#: [id number] Attend Dr: Bernadette Carolina MD Re07/24/23 Status: DEP REF Location: HO.HHCLNP Disch: ----- ------- SPEC : [id number] RECD: 07/25/23 STATUS: LUCIANO WAGNER NUM: [id number] VELIA: 07/24/23-[address] [facility] [address]: Bernadette Carolina MD ENTERED: 2329 SP TYPE: Pap Smr OTHR DR: ORDERED: Pap Smear Interpretation Satisfactory for evaluation. Negative for intraepithelial lesion or malignancy. HPV mRNA E6/E7: NOT DETECTED This assay detects E6/E7 viral messenger RNA (mRNA) from 14 high-risk HPV types (16, 18, 31, 33, 35, 39, 45, 51, 52, 56, 58, 59, 66, 68) HPV testing performed by [facility], [place], [place]. See reference laboratory portion of the EMR for entire report. Clinical Information LMP: Unknown date Previous PAP test: She has not had one for many years Material Received ThinPrep-Vaginal/Cervical ----- ------- Signed (signature on file) NICOLA Beth (ASC) 08/13/23 0755 ----- ------- END OF REPORT us Bernadette Carolina MD LAB CYTOLOGY ORDERABLES Final Re sult [facility] [address] [place] [phone] * HPV mRNA E6/E7 w/Reflex to HPV Genotypes 16, 18/45 (07/24/2023 10:19 AM EST) HPV nRNA E6/E7 Not Detected Not Detected [facility] Comment:Methodology: Transcr iption-Mediated AmplificationThis assay detects E6/E7 viral messenger RNA (mRNA) from 14high-risk HPV types (16,18,31,33,35,39,45,51,52,56,58,59,66,68).Cervical sources are required for HPV testing.If a vaginal source from a patient who has had atotal hysterectomy with removal of cervix wassubmitted, please contact the testing laboratoryfor alternative testing options.For additional information, please refer tohttp://education.ServiceTrade/faq/RNJ015n4(This link if provided for information/educational purposes only.)THIS TEST WAS PERFORMED AT:[facility] [place] [id number] PASCAL MD HPV mRNA E6/E7 [facility] HPV 16 RNA [facility] HPV 18/45 RNA [facility] 07/24/2023 10:1 9 AM EST 07/25/2023 10:45 AM EST Bernadette Carolina MD LAB CYTOLOGY ORDERABLES Final Re sult Performing Organization Address [facility] Co de Phone Number [facility] [address] [place] [address] [phone] * HCG, Total, Quantitative (01/24/2023 10:15 AM EDT) Pathologist [facility] HCG, Total, QN <5 mIU/mL [facility] Comment: Reference Range Non or premenopausal <5 Postmenopausal <10 Values from different assay methods may vary. The use of this assay to monitor or to diagnose patients with cancer or any condition unrelated to has not been cleared or approved by the FDA or the crushing foreman of the assay. Blood Venous blood specimen / Unknown 01/24/2023 10:15 AM EDT 01/24/2023 10:16 AM EDT Narrative [facility] - 01/24/2023 8:48 PM EDT FASTING:YES AN UPDATE OR CORRECTION HAS BEEN MADE TO NAME FASTING: YES Bernadette Carolina MD LAB BLOOD ORDERABLES Final Resul t Performing Organization Address City/[facility]/ZIP Co de Phone Number [facility] [address], [place] [address] [facility] [address] [place] [phone] documented in this encounter Visit Diagnoses Diagnosis Secondary oligomenorrhea- Primary Scanty or infrequent menstruation documented in this encounter Additional Health Concerns Assessment Noted Time PHQ-9 Depression Total Score: 9 12/14/19 23 9:29 AM EDT documented as of this encounter Care Teams Office Coordinator Receptionist Relationship Specialty Start Date End Date Bernadette Carolina MD [address] [place] [address] PCP - General Family Medicine 12/17/22 documented as of this encounter
--- OUTSIDE RECORDS SUMMARY | 2025-08-17 21:15 | XMS_ITS | Encounter Summary ---
Author Organization [employer] Address [address] [place] [address] Care Team Providers Care Inventory Auditor Name Role Phone Bernadette Carolina MD Primary Care Provider [phone] Encounter Details Date Type Department Care Team (Late st Contact Info) Description 03/24/2024 Orders Only [facility] MEDICINE [address] [place], [place] [phone] Bernadette Carolina MD [address] [place], [place] [phone] Social History Tobacco Use Types Packs/Day Years Used Date Smoking Tobacco: Never Passive Smoke Exposure: Never Smokeless Tobacco: Never Depression Answer Date Recorded Patient Health Questionnaire-9 Score 25 03/24/2024 Patient Health Questionnaire-9 Score 25 03/24/2024 Last PHQ-9: Questionnaire Data Not on file 0 03/24/2024 Housing Stability Answer Date Recorded What is your housing situation today? I have enriqueta guevara 07/09/[address] you [...] t he electric, gas, oil or water fake company 2.0 threatened to shut off services in your home? No 07/09/2023 Depression Answer Date Recorded Patient Health Questionnaire-2 Score 6 03/24/2024 Comments Unknown Sex and Gender Information Value Date Recorded Sex Assigned at Female 10/12/2022 10:30 AM EST Legal Sex Female 10:19 AM EST Gender Identity Female 10/12/2022 10:29 AM EST Sexual Orientation Straight 10/12/2022 10 :30 AM EST documented as of this encounter Functional Status * Over the past 2 weeks, how often have you been bothered by any of the following problems? Question Answer Date of Assessment Author Patient Health Questionnaire-2 Score 6 03/09 3:37 PM Catarina Thorne RN * Little interest or pleasure in doing things Answer Date of Assessment Author Nearly every day 03/24/2024 3:37 PM Arleen Thorne RN * Feeling down, depressed, or hopeless Answer Date of Assessment Author Nearly every day 03/24/2024 3:37 PM Arleen Thorne RN * Trouble falling or staying asleep, or sleeping too much Answer Date of Assessment Author Nearly every day 03/24/2024 3:37 PM Arleen Thorne RN * Feeling tired or having little energy Answer Date of Assessment Author Nearly every day 03/24/2024 3:37 PM Arleen Thorne RN * Poor appetite or overeating Answer Date of Assessment Author Nearly every day 03/24/2024 3:37 PM Arleen Thorne RN * Feeling bad about yourself - or that you are a failure or have let yourself or your family down Answer Date of Assessment Author Nearly every day 03/24/2024 3:37 PM Arleen Thorne RN * Trouble concentrating on things, such as reading the newspaper or watching television Answer Date of Assessment Author Nearly every day 03/24/2024 3:37 PM Arleen Thorne RN * Moving or speaking so slowly that other people could have noticed? Or the opposite - being so fidgety or restless that you have been moving around a lot more than usual. Answer Date of Assessment Author More than half the days 03/24/2024 3:37 PM EDT Catarina Jarvis RN * Thoughts that you would be better off or hurting yourself in some way Answer Date of Assessment Author More than half the days 03/24/2024 3:37 PM EDT Catarina Jarvis RN * Patient Health Questionnaire-9 Score Answer Date of Assessment Author 03/24/2024 3:37 PM EDT Steve Ortiz RN * How difficult have these problems made it for you to do your work, take care of things at home, or get along with other people? Answer Date of Assessment Author Extremely difficult 03/24/2024 3:37 PM EDT Catarina Ortiz RN documented as of this encounter Plan of Treatment Not on file documented as of this encounter Visit Diagnoses Not on filedocumented in this encounter Additional Health Concerns Assessment Noted Time PHQ-9 Depression Total Score: 024 3:37 PM EDT documented as of this encounter Care Teams Inventory Auditor Relationship Specialty Start Date End Date Bernadette Carolina MD [address] [place] [address] PCP - General Family Medicine 12/17/22 documented as of this encounter
--- OUTSIDE RECORDS SUMMARY | 2025-08-17 21:15 | XMS_ITS | Encounter Summary ---
Author Organization [employer] Address [address] [place] [address] Care Team Providers Care Hangersmith Name Role Phone Bernadette Carolina MD Primary Care Provider [phone] Encounter Details Date Type Department Care Team (Late st Contact Info) Description 08/17/2024 Orders Only [facility] MEDICINE [address] [place], [place] [phone] Bernadette Carolina MD [address] [place], [place] [phone] Social History Tobacco Use Types Packs/Day Years Used Date Smoking Tobacco: Never Passive Smoke Exposure: Never Smokeless Tobacco: Never Depression Answer Date Recorded Patient Health Questionnaire-9 Score 17 05/03/2024 Patient Health Questionnaire-9 Score 17 05/03/2024 Last PHQ-9: Questionnaire Data Not on file 0 05/03/2024 Housing Stability Answer Date Recorded What is [...] Date Recorded Patient Health Questionnaire-2 Score 4 05/03/2024 Comments Unknown Sex and Gender Information Value [...] Assessment Noted Time PHQ-9 Depression Total Score: 17 024 3:12 PM EDT documented as of this encounter Care Teams Hangersmith Relationship Specialty Start Date End Date Bernadette Carolina MD [address] [place] [address] PCP - General Family Medicine 12/17/22 documented as of this encounter
== END 2025-08-17 14:57 | disposition home or self-care (01) ==
LOC: HO.HHCL 14:56
PROVIDERS: PCP Family Medicine; Visit Provider Family Medicine
DX: I10 Essential (primary) hypertension (principal); E11.9 Type 2 diabetes mellitus without complications; R23.3 Spontaneous ecchymoses; Z13.220 Encounter for screening for lipoid disorders
CPT/HCPCS: 36415; 80053; 80061; 85025; 85610; 85730